=== PATIENT | male | born 2000 | race Caucasian/White ===

== ENCOUNTER 2023-05-28 04:10 | Emergency (ER) | payer OTHER ==
[~2023-05-28] VITALS: Ht 170.2 cm; Wt 61.2 kg
== END 2023-05-28 04:21 | disposition home or self-care (01) ==
LOC: ER 04:10
DX: Z02.89 Encounter for other administrative examinations (principal); R45.6 Violent behavior
CPT/HCPCS: 99283

== ENCOUNTER 2024-04-03 09:17 | Day surgery (SDC) | payer OTHER ==
[2024-04-03] VITALS (12 sets, daily range): BP systolic 120–156; BP diastolic 71–108
[~2024-04-03 09:17] MED LIST: CeFAZolin Sodium 2,000 MG in NS 100 ML IV SCH; Lactated Ringer's 1,000 ML IV SCH
--- NOTE | 2024-04-03 09:42 | NUR ---
Ambulatory in Day Surgery Patient confirms NPO status and agrees with scheduled surgery. Patient States Post-Procedure ride home has been arranged. History, Chart, Medications and Allergies reviewed before start of procedure.Pre-Op teaching done. Pt verbalizes understanding.
[2024-04-03] MEDS ORDERED: MELO7.5 PO (10:02)
[2024-04-03] MEDS ORDERED: propofoL 20 ML IV ONE (10:04)
[2024-04-03] MEDS ORDERED: Ondansetron HCl 2 MG / ML 2ML Vial ONE (10:04)
[2024-04-03] MEDS ORDERED: Dexamethasone Sod Phos 10 MG/ML 1ML VIAL ONE (10:04)
[2024-04-03] MEDS ORDERED: FentaNYL Citrate 50 MCG/ML 2 ML Injection ONE ×2 (10:04→12:19)
[2024-04-03] MEDS ORDERED: Bupivacaine 0.5% HCl 5 MG/ML 30MLVIAL ONE (10:17)
[2024-04-03] MEDS ORDERED: HYDROmorphone HCl/Pf 1MG SYR ONE (11:32)
[2024-04-03] MEDS ORDERED: HYDROcodone 5-APAP 325 TAB PO PRN (12:15)
[2024-04-03] MEDS ORDERED: FentaNYL Citrate 50 MCG/ML 2 ML Injection IV PRN (12:20)
--- NOTE | 2024-04-03 13:13 | NUR ---
SPOKE WITH DR LEES REGARDING PATIENTS PAIN LEVEL. PER DR LEES, LOOSEN DRESSING AND EXPLAIN TO PATIENT WILL HAVE SOME PAIN DUE TO WHAT WAS DONE IN SURGERY. CONTINUE TO TAKE RX PRESCRIBED ALONG WITH ELEVATION/ICE. ONCE VIDHYA WRAP LOOSEN, PATIENT COULD FEEL INSTANT RELIEF. PAIN LEVEL DOWN TO 5/10 FROM 07/18. STABLE FOR DISCHARGE. Patient up to Ambulate independently. Gait steady. Dressing to procedure site clean, dry, intact with no visible drainage, swelling, erythema or bruising noted. Patient States Post-Procedure ride home has been arranged. Discharged via wheelchair to private car for ride home.
== END 2024-04-03 13:13 | disposition home or self-care (01) ==
LOC: ORSCMMR 09:17 → ORD 11:45 → ORSCMMR 12:00
PROVIDERS: Orthopaedic Surgery
PROC: 0JCJ0ZZ Extirpation of Matter from Right Hand Subcutaneous Tissue and Fascia, Open Approach (ICD-10-PCS; principal; 2024-04-03 10:00)
PROC: 0JBJ0ZZ Excision of Right Hand Subcutaneous Tissue and Fascia, Open Approach (ICD-10-PCS; principal; 2024-04-03 10:00)
DX: S60.551D Superficial foreign body of right hand, subsequent encounter (principal); S69.91XD Unspecified injury of right wrist, hand and finger(s), subsequent encounter; F17.210 Nicotine dependence, cigarettes, uncomplicated
CPT/HCPCS: 88300; 88305; A9270; J0690; J1100; J1170; J2405; J2704; J3010; J7120